=== PATIENT | female | born 1980 | race Caucasian/White ===

== ENCOUNTER 2017-08-21 05:12 | Day surgery (SDC) | payer OTHER ==
[2017-08-14 11:39] LABS: BASOPHIL 0.7 % (0-2.0); EOSINOPHIL 1.7 % (0-4.5); MCH 29.8 pg (25.7-33.7); MEAN CELL VOLUME 87.7 fl (80-96); MEAN PLT VOLUME 7.3 fl (7.5-11.1); NEUTROPHILS 54.3 % (42.8-82.8); PLATELET COUNT 132 K/MM3 (134-434); RDW 13.7 % (11.6-15.6); WHITE BLOOD COUNT 4.2 K/mm3 (4.0-10.0)
[2017-08-14 11:49] VITALS: BMI 28.6
[2017-08-14 12:03] LABS: INR 1.16 (0.82-1.09); PROTHROMBIN TIME (PATIENT) 12.8 SEC (9.98-11.88)
[2017-08-14 12:06] LABS: ACTIVATED PTT 31.7 SECONDS (26.9-34.4)
[2017-08-14 12:36] LABS: ALBUMIN 3.7 g/dl (3.4-5.0); ALK PHOS 55 U/L (45-117); ANION GAP 7 (8-16); BILIRUBIN,TOTAL 0.6 mg/dL (0.2-1.0); CALCIUM 8.2 mg/dL (8.5-10.1); CO2 27 mmol/L (21-32); CREATININE 0.5 mg/dL (0.55-1.02); GLUCOSE,RANDOM 104 mg/dL (74-106); SGPT/ALT 25 U/L (12-78)
[2017-08-14 12:37] LABS: SGOT/AST 415 U/L (15-37)
[2017-08-21] MEDS ORDERED: PROPOFOL 20 ML ONE (10:58)
[2017-08-21] MEDS ORDERED: MIDAZOLAM HCL 2 MG/2 ML SINGLE DOSE VIAL ONE (10:58)
[2017-08-21] MEDS ORDERED: KETOROLAC TROMETHAMINE 30 MG/1 ML VIAL ONE (11:00)
[2017-08-21] MEDS ORDERED: DEXAMETHASONE SOD PHOSPHATE 4 MG/1 ML VIAL ONE (11:00)
[2017-08-21] MEDS ORDERED: LIDOCAINE HCL 2% JELLY (5 ML/TUBE) ONE (11:00)
[2017-08-21] MEDS ORDERED: LIDOCAINE HCL/PF 2% SDV 5ML VIAL ONE (11:00)
--- NOTE | 2017-08-21 11:15 | HP ---
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: Alzheimer's, CVA, Dementia, Migraine, Multiple Sclerosis, Peripheral Neuropathy, Parkinson's, Seizure, Syncope, TIA, Vertigo, Other Cardiovascular: No: AFIB, Aneurysm, Aortic Insufficiency, Aortic Stenosis, CAD, CHF, Deep Vein Thrombosis, HTN, Hyperlipdemia, [place], Mitral Insufficiency, Mitral Stenosis, Murmur, Pulmonary Hypertension, Other Gastrointestinal: No: Ascites, Cancer, Constipation, Crohn's Disease, Diverticulitis, Diverticulosis, Esophageal Varices, Gastritis, GERD, GI Bleed, Hemorrhoids, Hiatal Hernia, Inflamatory Bowel Disease, Irritable Bowel Disease, Pancreatitis, Peptic Ulcer Disease, Ulcerative Colitis, Other Hepatobiliary: No: Cirrhosis, Cholelithiasis, Cholecystitis, Choledocholithiasis , Hepatitis A, Hepatitis B, Hepatitis C, Other Renal/: No: Renal Failure, Renal Inusuff, BPH, Cancer, Hematuria, Hemodialysis , Neurogenic Bladder, Renal Calculi, UTI, Other Reproductive: No: Ectopic , Endometriosis, Fibroids, PID, Polycystic Ovary Syndrome, Postmenopausal, Other ...Para: 3 Heme/Onc: No: Anemia, B12 Deficiency, Bleeding Disorder, Cancer, Current Chemotherapy, Current Radiation Therapy, Hemochromatosis, Hypercoaguable State, Myeloproliferative Synd, Sickle Cell Disease, Sickle Cell Trait, Thrombocytopenia, Other Infectious Disease: No: AIDS, C-Diff, Herpes Zoster, HIV, MRSA, STD's, Tuberculosis, VREF, Other Psych: No: Addictions, Anxiety, Bipolar, Depression, Panic, Psychosis, Schizophrenia, Other Musculoskeletal: No: Bursitis, Chronic low back pain, Hemiparesis, Hemiplegia, Osteoarthritis, Paraplegia, Other Rheumatology: No: Fibromyalgia, Gout, Lupus, Rheumatoid Arthritis, Sarcoidosis, Vasculitis, Other ENT: No: Allergic Rhinitis, Sinusitis, Other Endocrine: No: Bartow's Disease, Jake's Disease, Diabetes Insipidus, Diabetes Mellitus, Hyperparathyroidism, Hyperthyroidism, Hypothyroidism, Osteopenia, SIADH, Other Dermatology: No: Basal Cell, Cellulitis, Eczema, Melanoma, Psoriasis, Squamous Cell, Other - Past Surgical History Past Surgical History: Yes: None Hx Myomectomy: No Hx Transabdominal Cerclage: No - Smoking History Smoking history: Current some day smoker Have you smoked in the past 12 months: Yes Aproximately how many cigarettes per day: 1 - Alcohol/Substance Use Hx Alcohol Use: No History of Substance Use: reports: None - Social History Usual Living Arrangement: Yes: With Spouse ADL: Independent History of Recent Travel: No Home Medications - Allergies Allergies/Adverse Reactions: Allergies Allergy/AdvReac Type Severity Reaction Status Date / Time No Known Allergies Allergy Verified 08/21/17 10:08 - Home Medications Home Medications: Ambulatory Orders NK [No Known Home Medication] 08/14/17 Family Disease History - Family Disease History Family Disease History: Diabetes: Father, Other: Mother (arthritis) Review of Systems - Review of Systems Constitutional: reports: No Symptoms Eyes: reports: No Symptoms HENT: reports: No Symptoms Neck: reports: No Symptoms Cardiovascular: reports: No Symptoms Respiratory: reports: No Symptoms Gastrointestinal: reports: No Symptoms Genitourinary: reports: No Symptoms Breasts: reports: No Symptoms Reported Musculoskeletal: reports: No Symptoms Integumentary: reports: No Symptoms Neurological: reports: No Symptoms Endocrine: reports: No Symptoms Hematology/Lymphatic: reports: No Symptoms Psychiatric: reports: No Symptoms Pain Intensity: 0 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: Vital Signs Temperature 97.4 F L 08/21/17 10:03 Pulse Rate 60 08/21/17 10:03 Respiratory Rate 20 08/21/17 10:03 Blood Pressure 106/63 08/21/17 10:03 O2 Sat by Pulse Oximetry (%) 100 08/21/17 10:02 Constitutional: Yes: Well Nourished, No Distress, Calm Eyes: Yes: WNL, Conjunctiva Clear, EOM Intact HENT: Yes: WNL, Atraumatic, Normocephalic Neck: Yes: WNL, Supple, Trachea Midline Cardiovascular: Yes: WNL, Regular Rate and Rhythm Respiratory: Yes: WNL, Regular, CTA Bilaterally Gastrointestinal: Yes: WNL, Normal Bowel Sounds, Soft ...Rectal Exam: Yes: WNL Renal/: Yes: WNL Pelvis: Yes: WNL External Genitalia: Yes: Normal Internal Exam Deferred: No Vaginal Exam: Yes: Normal Cervix: Yes: Normal Uterus: Yes: Normal Adnexa: Normal: Left, Right Musculoskeletal: Yes: WNL Extremities: Yes: WNL Edema: No Integumentary: Yes: WNL Neurological: Yes: WNL, Alert, Oriented ...Motor Strength: WNL Psychiatric: Yes: WNL, Alert, Oriented Labs: CBC, BMP 08/14/17 11:27 08/14/17 11:27 Assessment/Plan 37yo female P3 admitted for surgical sterilization. The pt prefers laparoscopic bilateral tubal ligation. We had discussed the risks, benefits, alternatives of surgery at length including but not limited to infection, bleeding, scarring, perforation, amenorrhea, infertility, hysterectomy, injury to surrounding/ underlying organs or structure, need for additional surgery to repair/treat any complications, etc. The patient verbalized understanding and requested to proceed with surgery. I emphasized that all surgeries have risks and no guarantees can be provided.
[2017-08-21] MEDS ORDERED: ROCURONIUM BROMIDE 50 MG/5 ML VIAL ONE (11:17)
[2017-08-21] MEDS ORDERED: BUPIVACAINE HCL/PF 0.5% (5MG/ML) 10 ML VIAL IJ ONE (11:54)
[2017-08-21] MEDS ORDERED: NEOSTIGMINE METHYLSULFATE 0.5 MG/ML - 10 ML MDV ONE (11:54)
--- NOTE | 2017-08-21 12:11 | OP ---
Operative Note - Note: Operative Date: 08/21/17 Pre-Operative Diagnosis: Sterilization Operation: Laparoscopic BTL Findings: Normal uterus, ovaries, Fallopian tubes, bowel Post-Operative Diagnosis: Same as Pre-op Surgeon: Al Chiang Bus Driver/Monitor: Bonnie Aguirre Anesthesia: General Specimens Removed: None Estimated Blood Loss (mls): 5 Drains & Tubes with Location: Thomas catheter Drains, Volume Out (mls): 175 Blood Volume Replaced (mls): 0 Fluid Volume Replaced (mls): 1,000 Operative Report Dictated: Yes
[2017-08-21] MEDS ORDERED: oxyCODONE HCL 5 MG TABLET PO PRN (12:27)
[2017-08-21] MEDS ORDERED: ONDANSETRON 4 MG/2 ML VIAL IVPUSH PRN (12:27)
[2017-08-21] MEDS ORDERED: LACTATED RINGERS SOLUTION 1,000 ML IV SCH (12:30)
[2017-08-21 13:34] VITALS: TEMP 98.2
[2017-08-21] MEDS ORDERED: oxyCODONE HCL 5 MG TABLET PO ONE (14:35)
[2017-08-21] MEDS ORDERED: oxyCODONE HCL 5 MG TABLET ONE (14:36)
[2017-08-21 14:49] VITALS: BP 117/61; PULSE 56
--- NOTE | 2017-08-22 08:07 | OP ---
DATE OF OPERATION: 08/21/2017 PREOPERATIVE DIAGNOSIS: Sterilization. POSTOPERATIVE DIAGNOSIS: Sterilization. PROCEDURE: Laparoscopic bilateral tubal ligation via fulguration method. SURGEON: Al Chiang MD NURSE CASE MANAGER: Bonnie Aguirre MD ANESTHESIOLOGIST: Clifton Anderson MD ANESTHESIA: General. COMPLICATIONS: None. ESTIMATED BLOOD LOSS: 5 mL URINE OUTPUT: 175 mL of clear urine at the end of the procedure. INTRAVENOUS FLUIDS: 1000 mL FINDINGS: Examination under anesthesia revealed a small anteverted uterus with no pelvic or adnexal masses. Laparoscopy revealed a normal uterus, fallopian tubes and ovaries. Normal bowel was visualized. Normal liver, gallbladder, and stomach were noted. DESCRIPTION OF PROCEDURE: The patient was met preoperatively. Risks, benefits, and alternatives of surgery were discussed in details. All questions were answered. The patient was then brought to the OR with IV running. She was placed on the surgical table in the supine position. General endotracheal anesthesia was achieved without difficulty. The patient was then placed in a dorsal lithotomy position using adjustable Chemo stirrups. The patient was examined under anesthesia with the findings as described above. The patient was then prepped and draped in the usual sterile fashion. A Thomas catheter was introduced inside the bladder and left to drain to gravity. A HUMI uterine manipulator was introduced inside the uterus without complications. The surgeons then re-gloved and proceeded with the laparoscopy. A 5-mm intraumbilical incision was made with a knife. A Veress needle was placed through the umbilical incision into the peritoneal cavity without complications. Pneumoperitoneum was produced with CO2 gas and intraabdominal pressure set to 15 mmHg. The Veress was then removed, and a 5-mm trocar was introduced inside the peritoneal cavity under direct visualization. Atraumatic placement was confirmed. A second 5-mm incision was made with the knife in the midline approximately 2 cm above the pubic symphysis. A 5-mm trocar was introduced through that incision under direct visualization. A bipolar Kleppinger device was used to locate and grasp the left fallopian tube. The fallopian tube was traced to the fimbriated end. The mid-portion of the left fallopian tube was cauterized for the length of approximately 3.5 to 4 cm. The right fallopian tube was then also grasped and traced to the fimbriated end. The mid-portion of the right fallopian tube was also cauterized for the length of approximately 3.5 to 4 cm. Good hemostasis was noted bilaterally. The pneumoperitoneum was then reduced. The trocars were removed from the patient. Good hemostasis was noted. The incisions were closed with a 4-0 Biosyn suture. Thomas catheter and HUMI were removed. The patient was returned to supine position. Sponge, lap, and needle counts were correct. The patient was transferred to recovery room in stable condition. Cyrus CARRENO/[id number]
== END 2017-08-21 16:01 | disposition home or self-care (01) ==
LOC: JASU-SURG 05:12
PROVIDERS: ATTEND Obstetrics & Gynecology
PROC: 0U574ZZ Destruction of Bilateral Fallopian Tubes, Percutaneous Endoscopic Approach (ICD-10-PCS; principal; 2017-08-21 11:00)
DX: Z30.2 Encounter for sterilization (principal)
CPT/HCPCS: 36415; 80053; 84702; 84703; 85025; 85610; 85730; 86850; 86900; 86901; 94760